=== PATIENT | female | born 1965 | race Caucasian/White ===

== ENCOUNTER → 2016-03-20 | Outpatient (CLI) | payer OTHER ==
--- NOTE | 2016-03-20 13:51 | MR ---
MRI Lower Extremity, Right Hip History: Right hip pain. Impingement. Comparisons: None. Technique: MRI was performed of the pelvis and right hip using a 3 [employer] MRI system. Large field-of-v iew coronal and axial imaging was obtained with standard imaging sequences. High-resolution small fie ld-of-view imaging was obtained of the hip with oblique axial, oblique coronal, and sagittal images w ith standard imaging sequences. Findings: No significant bone marrow abnormality is visualized. There is mildly prominent red marrow. No evidence for avascular necrosis of the femoral head. No evidence for stress fracture of the femor al neck. No evidence for sacroiliitis. There is slight osseous fullness of the femoral head neck junction anteriorly of the right hip. Alpha angle is upper limits of normal at 52 degrees. Lateral center edge angle measures 33 degrees. There is a row of perilabral cysts in the 12 o'clock position with the largest one measuring 9 mm. A subcor tical cyst is seen in the anterior superior acetabulum. There is mild cartilage thinning superiorly i n the femoral head and superior acetabulum. There is fraying and partial tear in the anterior superio r labrum in the 12-2 o'clock position and also possible small partial tear in the 11 o'clock position . Ligamentum teres is diminutive but intact. Capsule is unremarkable. Large [id number] images including the left hip also suggest some underlying femoral acetabular imp ingement, cam type, and mild early degenerative change. Mild abnormal signal intensity is seen in the common hamstring tendon origins bilaterally without attenuation. The other visualized musculature an d tendons are unremarkable. Impression: 1. 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 Fraying and pa rtial tear in the superior anterior labrum. 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 2. There also appears to be some early degenerative change in the left hip and probable underlying fe moral acetabular impingement. 3. Mild tendinopathy common hamstring tendon origins without attenuation.
== END ==
LOC: FIMAGING 12:03
DX: M25.851 Other specified joint disorders, right hip (principal); M16.11 Unilateral primary osteoarthritis, right hip; M77.9 Enthesopathy, unspecified

== ENCOUNTER → 2016-04-15 | Outpatient (CLI) | payer OTHER | LOC: FIMAGING 07:31 | DX: Z12.31 Encounter for screening mammogram for malignant neoplasm of breast (principal) | CPT/HCPCS: G0202 ==

== ENCOUNTER → 2016-04-28 | Outpatient (CLI) | payer OTHER | LOC: CIMAGING 12:38 | PROVIDERS: ATTEND Obstetrics & Gynecology Gynecology | DX: R10.2 Pelvic and perineal pain (principal); Z90.710 Acquired absence of both cervix and uterus ==

== ENCOUNTER → 2016-06-10 | Outpatient (CLI) | payer OTHER | LOC: FIMAGING 12:54 | DX: R59.9 Enlarged lymph nodes, unspecified (principal); C43.9 Malignant melanoma of skin, unspecified ==

== ENCOUNTER → 2017-02-13 | Outpatient (CLI) | payer OTHER | LOC: FIMAGING 07:17 | DX: C43.9 Malignant melanoma of skin, unspecified (principal); R05 Cough ==

== ENCOUNTER → 2018-05-04 | Outpatient (CLI) | payer OTHER | LOC: FIMAGING 08:05 | PROVIDERS: ATTEND Obstetrics & Gynecology Gynecology | DX: Z12.31 Encounter for screening mammogram for malignant neoplasm of breast (principal); Z80.3 Family history of malignant neoplasm of breast ==